=== PATIENT | female | born 1985 | race African-American/Black ===

== ENCOUNTER 2019-04-09 11:25 | Emergency (ER) | payer OTHER ==
[~2019-04-09] VITALS: Ht 160 cm; Wt 58.5 kg
[2019-04-09 11:47] VITALS: BP 122/89
--- NOTE | 2019-04-09 11:50 | NUR ---
urine cup handed to pt for sample
[2019-04-09 13:10] LABS: BASOPHILS % (AUTO) 0.3 % (0.0-2.0); EOSINOPHILS % (AUTO) 0.8 % (0.0-4.0); HEMATOCRIT 39.6 % (36-48); HEMOGLOBIN 13.4 g/dL (12.0-16.0); LYMPHOCYTES # (AUTO) 1.8 K/uL (2.5-16.5); LYMPHOCYTES % (AUTO) 40.4 % (20.5-51.1); MEAN CORPUSCULAR HEMOGLOBIN 29 pg (27-31); MEAN CORPUSCULAR HGB CONC 34 g/dL (33-37); MONOCYTES # (AUTO) 0.3 K/uL (0.8-1.0); MONOCYTES % (AUTO) 7.2 % (1.7-9.3); NEUTROPHILS # (AUTO) 2.2 K/uL (1.8-7.7); NEUTROPHILS % (AUTO) 51.3 % (42.2-75.2); PLATELET COUNT (AUTO) 256 K/uL (140-450); RED BLOOD CELL COUNT(AUTO) 4.71 MIL/uL (4.20-5.40); RED CELL DISTRIBUTION WIDTH 13.3 % (11.6-13.7); WHITE BLOOD COUNT (AUTO) 4.3 K/uL (4.8-10.8)
[2019-04-09 13:23] LABS: ALBUMIN 4.2 g/dL (3.4-5.0); ANION GAP 9.1 (8-16); CARBON DIOXIDE 30.3 mmol/L (21-32); CREATININE 0.9 mg/dL (0.6-1.3); POTASSIUM 3.4 mmol/L (3.5-5.1); TOTAL BILIRUBIN 2.3 mg/dL (0.0-1.0)
--- NOTE | 2019-04-09 13:28 | NUR ---
33 Y/O FEMALE PRESENTS WITH OCCIPITAL HEADACHE X1 WEEK UNRELIEVED BY TYLENOL. PT ALSO HAS A SMALL MASS ON RIGHT SIDE OF FACE ON JAWLINE THAT HAS BEEN GROWING FOR OVER A YEAR. NO ADDITIONAL MASSES FELT UPON PALPATION ON HEAD. PT DENIES ANY RECENT INJURY. DENIES ANY VISION CHANGES. DENIES SOB/CP. RESP EVEN AND UNLABORED. LUNG SOUNDS CLEAR IN BILAT LOBES. DENIES ANY N/V/D, FEVERS, CHILLS. CAP REFILL <3. AAOX3. BED IN LOWEST POSITION. SIDE RAIL UP. NKA
--- NOTE | 2019-04-09 13:40 | NUR ---
PT TAKEN TO CT VIA W/C
[2019-04-09 14:06] LABS: APPEARANCE,URINE CLEAR (CLEAR); BILIRUBIN,URINE NEGATIVE (NEGATIVE); BLOOD, URINE 1+ (NEGATIVE); COLOR,URINE YELLOW (YELLOW); LEUKOCYTE ESTERASE ,URINE NEGATIVE (NEGATIVE); NITRITE, URINE POSITIVE (NEGATIVE); PH,URINE 6.5 (5.0-9.0); UGLUCOSE NEGATIVE (NEGATIVE)
[2019-04-09] MEDS ORDERED: IBUPROFEN 400 MG TAB PO ONE (14:20)
[2019-04-09 14:35] VITALS: BP 120/77
--- NOTE | 2019-04-09 14:35 | NUR ---
Patient discharged with v/s stable. Written and verbal after care instructions given and explained. Patient alert, oriented and verbalized understanding of instructions. Ambulatory with steady gait. All questions addressed prior to discharge. ID band removed. Patient advised to follow up with PMD. Rx of HYDROCORTISONE CREAM AND NAPROSYN given. Patient educated on indication of medication including possible reaction and side effects. Opportunity to ask questions provided and answered.
--- NOTE | 2019-04-09 14:35 | NUR ---
PT DISCHARGED BEFORE MED RE-EVLAUTED. STATES SHE HAS HAD MEDICATION BEFORE
[2019-04-09 14:40] LABS: WBC,URINE 0-5 /HPF (0-5)
== END 2019-04-09 14:35 | disposition home or self-care (01) ==
LOC: MED 11:25
DX: L72.3 Sebaceous cyst (principal); R21 Rash and other nonspecific skin eruption; R03.0 Elevated blood-pressure reading, without diagnosis of hypertension; F17.209 Nicotine dependence, unspecified, with unspecified nicotine-induced disorders; J45.909 Unspecified asthma, uncomplicated
CPT/HCPCS: 36415; 70450; 80053; 81001; 81025; 85025; 87086; 99284

== ENCOUNTER 2023-01-27 23:35 | Emergency (ER) | payer OTHER ==
[~2023-01-27] VITALS: Ht 160 cm; Wt 66.2 kg
[2023-01-27 23:57] VITALS: BP 121/73; PULSE 73; RESP 18; TEMP 97; O2SAT 100
[2023-01-28] MEDS ORDERED: diphenhydrAMINE 50 MG/ML VIAL IM ONE (00:40)
[2023-01-28] MEDS ORDERED: methylPREDNISolone SS 125 MG in WATER STERILE 2 ML IM ONE (00:40)
[2023-01-28] MEDS ORDERED: WATER STERILE 10 ML MC ONE (00:51)
[2023-01-28] MEDS ORDERED: methylPREDNISolone SS 125 MG/2 ML VIAL ONE (00:51)
[2023-01-28] MEDS ORDERED: FEXO180T82 PO (01:14)
[2023-01-28 01:20] VITALS: BP 104/75; PULSE 63; RESP 16; TEMP 98.2; O2SAT 100
== END 2023-01-28 01:20 | disposition home or self-care (01) ==
LOC: MED 23:35
DX: L50.9 Urticaria, unspecified (principal); Z79.899 Other long term (current) drug therapy
CPT/HCPCS: 96372; 99284; J1200; J2930